=== PATIENT | female | born 1950 | race Caucasian/White ===

== ENCOUNTER 2021-01-31 21:48 | Inpatient (IN) | payer MEDICARE, SELFPAY ==
[~2021-01-31] VITALS: Ht 170.2 cm; Wt 78.0 kg
--- NOTE | 2021-01-31 21:50 | NUR ---
Patient to ER bed 2 to gown for evaluation. Side rails up. Report given to STEVE STEVENS.
[2021-01-31 21:51] VITALS: BP_SYST 187
--- NOTE | 2021-01-31 21:57 | NUR ---
PT ARRIVES VIA ACLS S/P FALL. PT WAS WALKING HER DOG WHEN THE DOG'S LEASH BECAME TANGLED AROUND HER LEFT LEG. THE PT HAS DRAGGED TO THE CONCRETE INJURING HER LEFT LEG. THERE IS AN OBVIOUS DEFORMITY TO THE LEFT LEG
--- NOTE | 2021-01-31 22:00 | NUR ---
DR. CORBIN AT BEDSIDE TO ASSESS.
--- NOTE | 2021-01-31 22:20 | NUR ---
PORTABLE XRAYS DONE AT BEDSIDE.
[2021-01-31] MEDS ORDERED: MORPHINE 4 MG INJ. 4 MG/ML VIAL IVP ONE (22:30)
[2021-01-31] MEDS ORDERED: MORPHINE 2 MG/ML INJ. SYRINGE ONE (22:30)
[2021-01-31] MEDS ORDERED: MORPHINE 4 MG INJ. 4 MG/ML VIAL ONE (22:30)
--- NOTE | 2021-01-31 22:50 | NUR ---
PARHAM INSERTED 16F 150CC OF CLEAR YELLOW URINE DRAINING TO GRAVITY. URINE SPECIMEN OBTAINED AND SENT TO LAB FOR ANALYSIS.
--- NOTE | 2021-01-31 23:00 | NUR ---
PT PAIN LEVEL IMPROVED TO 5/10. PT RESTING QUIETLY IN NO DISTRESS.
[2021-02-01] MEDS ORDERED: MORPHINE 4 MG INJ. 4 MG/ML VIAL IVP ONE
[2021-02-01] MEDS ORDERED: KETOROLAC TROMETHAMINE 30 MG VIAL IVP ONE
[2021-02-01] MEDS ORDERED: MORPHINE 2 MG/ML INJ. SYRINGE ONE ×2 (00:04→00:07)
[2021-02-01 00:08] LABS: BASOPHILS % (AUTO) 0.2 % (0.0-2.0); EOSINOPHILS # (AUTO) 0.1 K/uL (0.0-0.4); EOSINOPHILS % (AUTO) 0.8 % (0.0-4.0); HEMATOCRIT 39.2 % (36-48); HEMOGLOBIN 13.5 g/dL (12.0-16.0); LYMPHOCYTES # (AUTO) 1.3 K/uL (1.0-5.5); LYMPHOCYTES % (AUTO) 12.1 % (20.5-51.5); MEAN CORPUSCULAR HEMOGLOBIN 31 pg (27-31); MEAN CORPUSCULAR HGB CONC 35 % (32-36); MEAN CORPUSCULAR VOLUME 90 fL (79.0-98.0); MONOCYTES # (AUTO) 0.8 K/uL (0.0-1.0); MONOCYTES % (AUTO) 6.9 % (1.7-9.3); NEUTROPHILS # (AUTO) 8.8 K/uL (1.8-7.7); PLATELET COUNT (AUTO) 213 K/uL (130-430); RED BLOOD CELL COUNT(AUTO) 4.34 MIL/uL (4.2-6.2); RED CELL DISTRIBUTION WIDTH 13.5 % (9.0-15.0)
[2021-02-01 00:11] LABS: CALCIUM 9.6 mg/dL (8.4-11.0); CREATININE 0.76 mg/dL (0.55-1.30); POTASSIUM 4.1 mmol/L (3.5-5.1)
[2021-02-01] MEDS ORDERED: ONDANSETRON HCL 4 MG/2 ML VIAL IVP PRN (00:15)
[2021-02-01 00:16] LABS: PROTHROMBIN TIME 10.4 SECS (9.5-12.5)
--- NOTE | 2021-02-01 00:17 | NUR ---
Covid-19 swabs collected and sent to lab.
--- NOTE | 2021-02-01 00:25 | NUR ---
REPORT GIVEN TO RODNEY REAL WHO WILL ASSUME CARE.
[2021-02-01] MEDS ORDERED: LOVA20TA2 PO (00:35)
[2021-02-01] MEDS ORDERED: ASPI-1155 PO (00:35)
[2021-02-01] MEDS ORDERED: SENN-295 PO (00:35)
--- NOTE | 2021-02-01 00:35 | NUR ---
Medication reconciliation completed with information provided by patient. Any prior medication reconciliation on file was reviewed and corrected.
--- NOTE | 2021-02-01 00:54 | NUR ---
Patient will be admitted to care of Dr. Negro. Admitted to MS unit. Will go to room 105B. Belongings list completed. Complete and up to date summary report printed. SBAR report to be given at bedside with opportunity for questions.
[2021-02-01 01:00] VITALS: BP_SYST 152
--- NOTE | 2021-02-01 03:49 | NUR ---
CONSULTATION PAGED/CALLED Reason for Consultation: HIP FX Person Who was Notified: SHERRILL Consulting Physician:JOHN [employer] Specialty: Ordering Physician: ANITHA
--- NOTE | 2021-02-01 08:15 | NUR ---
OPENING NOTES: PATIENT RESTING IN BED. NO SIGNS OF ACUTE DISTRESS NOTED. BED LOCKED, ALARM ON AND IN LOWEST POSITION. FALL AND SAFETY REINFORCED. C/O PAIN LEFT HIP. WILL GIVE PRN MEDICATION. CALL LIGHT WITHIN REACH.
[2021-02-01] MEDS: MORPHINE 4 MG INJ. 4 MG/ML VIAL IVP PRN ×3 (08:21→21:59)
[2021-02-01 08:33] VITALS: BP_SYST 148
--- NOTE | 2021-02-01 11:07 | NUR ---
CONSULT CARDIOLOGY CARDIAC CLEARANCE DR [phone] S/W JUN OFFICE
[2021-02-01 11:10] LABS: BASOPHILS % (AUTO) 0.2 % (0.0-2.0); EOSINOPHILS # (AUTO) 0.2 K/uL (0.0-0.4); EOSINOPHILS % (AUTO) 1.8 % (0.0-4.0); HEMATOCRIT 42.2 % (36-48); HEMOGLOBIN 14.2 g/dL (12.0-16.0); LYMPHOCYTES # (AUTO) 1.8 K/uL (1.0-5.5); LYMPHOCYTES % (AUTO) 18.3 % (20.5-51.5); MEAN CORPUSCULAR HEMOGLOBIN 30 pg (27-31); MEAN CORPUSCULAR HGB CONC 34 % (32-36); MEAN CORPUSCULAR VOLUME 90 fL (79.0-98.0); MONOCYTES # (AUTO) 0.8 K/uL (0.0-1.0); MONOCYTES % (AUTO) 8.1 % (1.7-9.3); NEUTROPHILS # (AUTO) 7.1 K/uL (1.8-7.7); NEUTROPHILS % (AUTO) 71.6 % (40.0-70.0); PLATELET COUNT (AUTO) 216 K/uL (130-430); RED BLOOD CELL COUNT(AUTO) 4.68 MIL/uL (4.2-6.2); RED CELL DISTRIBUTION WIDTH 13.9 % (9.0-15.0); WHITE BLOOD COUNT (AUTO) 9.9 K/uL (4.8-10.8)
[2021-02-01 11:46] LABS: CALCIUM 9.6 mg/dL (8.4-11.0); CREATININE 0.59 mg/dL (0.55-1.30); POTASSIUM 4.4 mmol/L (3.5-5.1)
[2021-02-01 11:52] LABS: ALBUMIN 3.7 g/dL (3.4-4.8); TOTAL BILIRUBIN 0.4 mg/dL (0.0-1.0)
[2021-02-01 11:56] LABS: PROTHROMBIN TIME 10.1 SECS (9.5-12.5)
[2021-02-01] MEDS ORDERED: SUCCINYLCHOLINE CHLORIDE 20 MG/ML(QUELICIN) IVP ONE (12:44)
[2021-02-01] MEDS ORDERED: HYDROmorphone 2 MG/ML VIAL IVP ONE (12:44)
[2021-02-01] MEDS ORDERED: SEVOFLURANE 15 MIN GAS INH ONE (12:44)
[2021-02-01] MEDS ORDERED: BUPIVACAINE LIPOSOME/PF 266 MG/20 ML VIAL INFIL ONE (12:44)
[2021-02-01] MEDS ORDERED: DEXAMETHASONE SOD PHOSPHATE 10 MG/ML VIAL IVP ONE (12:44)
[2021-02-01] MEDS ORDERED: TRANEXAMIC ACID 1,000 MG/10 ML VIAL IV ONE (12:44)
[2021-02-01] MEDS ORDERED: BUPIVACAINE /EPINEPHRINE/PF 0.25% 30 ML VIAL INJ ONE (12:44)
[2021-02-01] MEDS ORDERED: GLYCOPYRROLATE 0.2 MG/ML VIAL IJ ONE (12:44)
[2021-02-01] MEDS ORDERED: METOCLOPRAMIDE HCL 10 MG/2 ML VIAL IVP ONE (12:44)
[2021-02-01] MEDS ORDERED: LR 1,000 ML IV.SOLN IV ONE (12:44)
[2021-02-01 12:58] VITALS: BP_SYST 145
--- NOTE | 2021-02-01 13:14 | NUR ---
RN NOTES: PATIENT C/O PAIN LEFT HIP 01/12. MORPHINE ORDERED PRN FOR PAIN GIVEN. NO SIGNS OF ACUTE DISTRESS NOTED.FALL AND SAFETY MEASURES REINFORCED. CALL LIGHT WITHIN REACH.
[2021-02-01] MEDS: KETOROLAC TROMETHAMINE 15 MG VIAL IVP PRN (17:22)
[2021-02-01 18:32] VITALS: BP_SYST 153
--- NOTE | 2021-02-01 18:55 | NUR ---
CLOSING NOTES: PATIENT EATING DINNER. NO SIGNS OF ACUTE DISTRESS NOTED. FALL AND SAFETY MEASURES RENDERED. CALL LIGHT WITHIN REACH.
--- NOTE | 2021-02-01 19:25 | NUR ---
CHANGE OF SHIFT; endorsed by day shift. admitted for left hip fracture due to a fall. bed alarm on, call light within reach.
[2021-02-01 20:00] VITALS: BP_SYST 134
--- NOTE | 2021-02-01 20:30 | NUR ---
NOTES: pt. awake, alert. wanted to go bowel movement, asked to go and will clean up. IV lock n rt. arm. barrios cath to osd. Vs checked. pt. brush her teeth and dentures. pt. needs attended. call light domi gonzales.
--- NOTE | 2021-02-02 | NUR ---
NOTES: pt. on supine, afraid to mve. instructed on deep breathing exercise.
[2021-02-02 00:15] VITALS: BP_SYST 128
--- NOTE | 2021-02-02 02:08 | NUR ---
NOTES: pt. been sleeping, kept NPO>
--- NOTE | 2021-02-02 04:40 | NUR ---
NOTES; pt. medicated wit IV Morphine for c/o left hip pain. morning care done. CHG bath given. repositioned .
--- NOTE | 2021-02-02 06:24 | NUR ---
CLOSING NOTES; pt. sleeping , preop checklist initiated, consent signed for ORIF left hip today. kept NPO. IV lock intact. folei in place. instructed on deep breathring. for further care an dobservation. on fall risk, bed alarm on. will endorse to incoming shift.
--- NOTE | 2021-02-02 06:55 | NUR ---
Nutrition Update Dax Scale 12 noted. Pt admitted for Hip fracture Diet: NPO BMI: 27 kg/m2 RD to follow per nutrition care standards.
[2021-02-02 07:50] LABS: BILIRUBIN,URINE NEGATIVE (NEGATIVE); BLOOD, URINE 3+ (NEGATIVE); CLARITY/URINE SL CLOUDY (CLEAR); COLOR,URINE YELLOW (YELLOW); GLUCOSE,URINE NEGATIVE (NEGATIVE); KETONES,URINE 1+ (NEGATIVE); LEUKOCYTE ESTERASE ,URINE NEGATIVE (NEGATIVE); NITRITE, URINE NEGATIVE (NEGATIVE); PROTEIN URINE NEGATIVE (NEGATIVE); UROBILINOGEN,URINE 0.2 (0.2-1.0)
[2021-02-02 08:00] VITALS: BP_SYST 149
[2021-02-02] MEDS: MORPHINE 4 MG INJ. 4 MG/ML VIAL IVP PRN (08:25)
--- NOTE | 2021-02-02 09:00 | NUR ---
rec'd report from offgoing nurse initial assessment was done pt is npo for surgery today r/t left hip fx pt overall appearances fair assess left lower extremity csm fair pulses present pt c/o severe pain in left hip denies sob or chest pain pain level 10 out of 10 vss pt appears calm and relaxed was given morphine 4mg ivp with zofran 4 mg ivp for potential feeling nauseated comfort and safety maintained reassess pain level 0 out of 10 her son at her bedside
[2021-02-02 10:04] LABS: RBC,URINE 20-50 /HPF (0-3)
[2021-02-02 10:05] LABS: BACTERIA,URINE None Seen /HPF (None Seen); WBC,URINE 0-3 /HPF (0-3)
[2021-02-02] MEDS ORDERED: ACETAMINOPHEN I.V. 1000 MG 100 ML IV ONE (12:29)
[2021-02-02] MEDS ORDERED: POLYMYXIN 500,000/BACIT.10,000 UNITS in NS IRR 1 L IR ONE (12:29)
--- NOTE | 2021-02-02 12:37 | NUR ---
pt just went down for surgery
[2021-02-02] MEDS ORDERED: fentaNYL CITRATE/PF 100 MCG/2 ML AMP IVP ONE (12:44)
[2021-02-02] MEDS ORDERED: MIDAZOLAM HCL 5 MG/ML VIAL (VERSED) IV ONE (12:44)
[2021-02-02] MEDS ORDERED: BUPIVACAINE LIPOSOME/PF 266 MG/20 ML VIAL INFIL ONE (15:01)
[2021-02-02] MEDS ORDERED: HYDROmorphone 2 MG/ML VIAL IVP PRN ×2 (15:15)
[2021-02-02] MEDS ORDERED: MEPERIDINE HCL/PF 25 MG/ML DISP.SYRIN IVP PRN (15:15)
[2021-02-02] MEDS ORDERED: LR 1,000 ML IV SCH (15:15)
[2021-02-02] MEDS ORDERED: HYDROmorphone 1 MG/ML INJ. CARTRIDGE IVP PRN (15:15)
[2021-02-02 16:35] VITALS: BP_SYST 140
--- NOTE | 2021-02-02 16:35 | NUR ---
rec'd pt from pacu a/a/ox4 ls cta bs pos in all four quad abd soft nondistented has a barrios catheter draining clear yellow urine pt overall appearances fair color good left hip has a white dsd dry and intact she has an abduct. pillow between her legs right leg has a scd on the lle extrem csm fair pulses present denies pain/discomfort teaching reinforced r/t post op care voiced her understanding well son at her side vss is afrebile, comfort and safety maintained
--- NOTE | 2021-02-02 19:30 | NUR ---
CHANGE OF SHIFT; S/P ;eft ORIF today. mo distress. on fall risk. call light at bedside.
[2021-02-02 20:45] VITALS: BP_SYST 126
--- NOTE | 2021-02-02 20:45 | NUR ---
NOTES: pt. awake, talking to her family via cellphone. IVF patent on rt. arm. barrios intact. left hip dressing intact with abduction pillow. no complaints of discomfort at this time. reminded pt. to do deep breathing. VS checked. call light at bedside. on room air.
[2021-02-02] MEDS: DOCUSATE SODIUM 100 MG CAPSULE PO SCH (20:57)
[2021-02-02] MEDS: CEFAZOLIN 1 GM IVPB PREMIX 50 ML IV SCH (21:01)
--- NOTE | 2021-02-02 22:30 | NUR ---
NOTES: pt. transferred room on 102 B. in stable condition via bed.
[2021-02-03 00:30] VITALS: BP_SYST 122
[2021-02-03] MEDS: MORPHINE 4 MG INJ. 4 MG/ML VIAL IVP PRN ×3 (02:12→20:39)
--- NOTE | 2021-02-03 02:39 | NUR ---
NOTES: IV site infiltrated, restarted on left hand guage # [id number], resume IVF. medicated with Morphine IV as ordered for. c/o lef hip pain. instructed on deep breahting.
--- NOTE | 2021-02-03 04:00 | NUR ---
NOTES: pt. sleeping, continue to monitor.
[2021-02-03] MEDS: KETOROLAC TROMETHAMINE 15 MG VIAL IVP PRN (05:12)
--- NOTE | 2021-02-03 05:14 | NUR ---
NOTES: pt. called c/o burning sensation on post op site, applied ice pack and medicated for post op pain.
--- NOTE | 2021-02-03 05:26 | NUR ---
NOTES: partial am /estefany/back care done. repositioned and pulled up in bed. abduction pillow intact. ice pack on left hip, dressing dry and intact. encouraged on deep breathing exercise. call light at bedside.
[2021-02-03] MEDS: CEFAZOLIN 1 GM IVPB PREMIX 50 ML IV SCH (06:26)
--- NOTE | 2021-02-03 06:30 | NUR ---
CLOSING NOTES; pt. sleeping when checked. IVF patent, due IV antibiotic on. barrios intact. for further care and assistance. will endorse to incoming shift.
--- NOTE | 2021-02-03 08:00 | NUR ---
awake and alert. on room air, no respiratory distress noted. abduction pillow in place, dressing dry and intact with icepack over the surgery area. FBC intact with clear yellow urine out put. able to move left foot , no feeling of numbness noted.
[2021-02-03] MEDS: DOCUSATE SODIUM 100 MG CAPSULE PO SCH ×2 (09:00→20:36)
[2021-02-03 09:06] LABS: BASOPHILS % (AUTO) 0.2 % (0.0-2.0); EOSINOPHILS # (AUTO) 0.2 K/uL (0.0-0.4); EOSINOPHILS % (AUTO) 1.4 % (0.0-4.0); HEMATOCRIT 38.9 % (36-48); HEMOGLOBIN 13.1 g/dL (12.0-16.0); LYMPHOCYTES # (AUTO) 1.9 K/uL (1.0-5.5); LYMPHOCYTES % (AUTO) 11.5 % (20.5-51.5); MEAN CORPUSCULAR HEMOGLOBIN 31 pg (27-31); MEAN CORPUSCULAR HGB CONC 34 % (32-36); MEAN CORPUSCULAR VOLUME 91 fL (79.0-98.0); MONOCYTES # (AUTO) 1.6 K/uL (0.0-1.0); MONOCYTES % (AUTO) 9.7 % (1.7-9.3); NEUTROPHILS # (AUTO) 12.7 K/uL (1.8-7.7); NEUTROPHILS % (AUTO) 77.2 % (40.0-70.0); PLATELET COUNT (AUTO) 193 K/uL (130-430); RED BLOOD CELL COUNT(AUTO) 4.28 MIL/uL (4.2-6.2); RED CELL DISTRIBUTION WIDTH 13.5 % (9.0-15.0); WHITE BLOOD COUNT (AUTO) 16.4 K/uL (4.8-10.8)
--- NOTE | 2021-02-03 10:00 | NUR ---
physical therapist is with him at this time.
--- NOTE | 2021-02-03 12:00 | NUR ---
patient said had no appetite, ate only 30%. able to sit on high backrest with no pain noted. afebrile.
--- NOTE | 2021-02-03 13:45 | NUR ---
Dietitian Recommendations * Recommend: continue regular diet, add Ensure Enlive BID, Judson BID. Please see Nutritional Assessment for details. RODNEY CHACON
--- NOTE | 2021-02-03 14:00 | NUR ---
maintained on limbs in proper alignment. made her up and advise to let her upper extremities to move left and right followed by deep breathing and coughing exercise. no complaints of pain so far. back rubbing also offered. kept comfortable.
--- NOTE | 2021-02-03 15:28 | NUR ---
1st post op day left ORIF. dressing dry ,clean and intact. on and off moderate to severe pain noted. pain meds given as ordered. vital signs stable. Had + gas once today. PT zak done this morning. Sebas said she was able to walked 10 steps around the room. back to bed after. patient said she wants more but her legs feels hurting. her plan is to walk more tomorrow. will continue to monitor.
[2021-02-03 15:34] VITALS: BP_SYST 133
--- NOTE | 2021-02-03 16:00 | NUR ---
abduction pillow in place. properly aligned . both lower extremities move. right leg moves well with no pain.
[2021-02-03 16:26] VITALS: BP_SYST 131
--- NOTE | 2021-02-03 18:53 | NUR ---
afebrile the whole shift. reinforce water intake.
--- NOTE | 2021-02-03 19:06 | NUR ---
Farted multiple times at the latest part of my shift as stated by patient. No Bm noted.
[2021-02-03 20:00] VITALS: BP_SYST 134
[2021-02-03] MEDS: ENOXAPARIN SODIUM 40 MG/0.4 ML SYRINGE SUBCUT SCH (20:38)
--- NOTE | 2021-02-03 20:39 | NUR ---
MORPHINE 4MG WAS GIVEN IV PER PT'S REQUEST FOR C/O 7/10 LEFT HIP INCISIONAL PAIN. LT HIP DRESSING IS DRY AND INTACT. NEUROVASCULAR CHECKS TO LLE ARE WNL.
[2021-02-04 00:33] VITALS: BP_SYST 145
--- NOTE | 2021-02-04 06:56 | NUR ---
PT IS RESTING QUIETLY IN BED. ALL PT'S NEEDS WERE ATTENDED TO. WILL ENDORSE TO DAY SHIFT NURSE.
[2021-02-04 08:00] VITALS: BP_SYST 138
[2021-02-04] MEDS: DOCUSATE SODIUM 100 MG CAPSULE PO SCH ×2 (09:00→21:47)
[2021-02-04] MEDS: MORPHINE 4 MG INJ. 4 MG/ML VIAL IVP PRN (10:15)
[2021-02-04 10:16] VITALS: BP_SYST 138
[2021-02-04 11:24] VITALS: BP_SYST 135
--- NOTE | 2021-02-04 11:49 | NUR ---
PT GIULIANA SAID THAT PATIENT HAD AN EPISODE OF NAUSEA WHEN SHE GOT UP FROM BED. BUT SUBSIDED AND ABLE TO WALK 10 TO 15 STEPS WITH NO RESPIRATORY DISTRESS. SPOKE TO PATIENT IF SHE NEED ZOFRAN AND SAID " AM OK ". PLACED ON BED IN COMFORTABLE POSITION, ABDUCTION PILLOW IN PLACED. NO PAIN NOTED.
[2021-02-04 15:31] VITALS: BP_SYST 124
--- NOTE | 2021-02-04 17:32 | NUR ---
Patient/family want patient to go home. She has a FWW, they want a commode and home health and home PT. They will ask MD for requested item/care. Jennie called and asked for order for commode and home health/PT.
--- NOTE | 2021-02-04 18:12 | NUR ---
SON REQUESTED TO DISCHARGE EARLY POSSIBLE. PREFERRED TO STAY HOME WITH FAMILY. CHARGE AND HOUSE VISITOR IS AWARE. CM NOTED.
--- NOTE | 2021-02-04 19:50 | NUR ---
PT'S SON, TOMI CALLED TO INFORM RN THAT PT DOES NOT WANT IV MORPHINE FOR PAIN. HE REQUESTED TO KNOW IF MD ORDERED ANOTHER PAIN MEDICATION BESIDES IV MORPHINE. RN INFORMED HIM THAT SHE WAS IN THE PANTRY GETTING ICE FOR ANOTHER PT WITH HIGH FEVER AND SHE WOULD CALL HIM BACK AFTER CHECKING THE COMPUTER. PT'S SON INSISTED THAT RN CALL HIM BACK RIGHT AWAY.
[2021-02-04 20:00] VITALS: BP_SYST 147
--- NOTE | 2021-02-04 20:30 | NUR ---
PT'S SON, TOMI CALLED BACK TO SPEAK WITH CHARGE NURSE BECAUSE PRIMARY RN WAS YET TO CALL HIM BACK. AT THE TIME OF HIS CALL, PRIMARY RN WAS ON THE PHONE WITH DR. WARNER, OBTAINING SEPSIS PROTOCOL ORDERS FOR ANOTHER PT OF HERS. TOMI' CALL WAS TRANSFERRED TO ADRIEL VENTURA SINCE THERE IS NO CHARGE NURSE IN THE UNIT.
[2021-02-04] MEDS: KETOROLAC TROMETHAMINE 15 MG VIAL IVP PRN (21:47)
--- NOTE | 2021-02-04 21:47 | NUR ---
TORADOL 15MG WAS GIVEN IV FOR C/O LEFT HIP PAIN. FALL AND SAFETY PRECAUTIONS ARE IN PLACE.
[2021-02-04] MEDS: ENOXAPARIN SODIUM 40 MG/0.4 ML SYRINGE SUBCUT SCH (21:50)
[2021-02-05 08:00] VITALS: BP_SYST 134
[2021-02-05] MEDS: DOCUSATE SODIUM 100 MG CAPSULE PO SCH ×2 (08:57→21:41)
--- NOTE | 2021-02-05 08:59 | NUR ---
Scheduled po medication given per order. Patient stable at this time with Evelio thomas at bedside.
[2021-02-05 09:00] VITALS: BP_SYST 134
--- NOTE | 2021-02-05 09:02 | NUR ---
Dr. Collins at bedside at this time.
[2021-02-05] MEDS: KETOROLAC TROMETHAMINE 15 MG VIAL IVP PRN ×2 (09:24→21:49)
--- NOTE | 2021-02-05 09:25 | NUR ---
Pain medication given prior to physical therapy. Patient stable.
--- NOTE | 2021-02-05 11:10 | NUR ---
Patient resting comfortably in bed with Aby thomas PT at bedside. Patient stable at this time.
[2021-02-05 11:26] VITALS: BP_SYST 152
--- NOTE | 2021-02-05 13:05 | NUR ---
Patient resting comfortably in bed; talking on cell phone. Patient stable at this time.
--- NOTE | 2021-02-05 13:41 | NUR ---
DISCHARGE PLANNING Order for dc planning for home health & bedside commode faxed to [facility]. Called & informed Jeromy at [facility], ph [phone], regarding order. States will look for order & work on getting a home health company & DME for pt.
--- NOTE | 2021-02-05 14:20 | NUR ---
Patient stable at this time with no complaint of pain or discomfort.
--- NOTE | 2021-02-05 14:56 | NUR ---
DC PLANNING Received call back from Jeromy at [facility], [facility] has accepted pt, ph [phone]. [employer] is the [employer] company that will be delivering the commode to pt's home today, ph [phone]. [facility] has made a f/u appt with pt's PCP Dr Venegas on Feb 11 at 11am, tele appt. Spoke with pt at bedside & states already discussed with Jeromy at [facility] & agreeable. Does not want to go to SNF, wants to dc home & agreeable with home health & commode.
[2021-02-05 15:33] VITALS: BP_SYST 130
--- NOTE | 2021-02-05 16:25 | NUR ---
Patient resting comfortably in bed with no complaint of pain. Patient stable at this time. Addendum: 02/05/21 at 1644 by Kathryn Rhodes RN [phone]: Family members x2 at bedside.
--- NOTE | 2021-02-05 18:30 | NUR ---
Dr. Castillo at bedside to change dressing on left hip incision. Per doctor, anticipated d/c date is tomorrow (02/06/21). Goff catheter discontinued per order. Emptied 200mls of clear, yellow urine. Patient tolerated well. Patient stable throughout shift.
[2021-02-05 20:00] VITALS: BP_SYST 121
--- NOTE | 2021-02-05 20:00 | NUR ---
INITIAL NOTES: PT IS WAKE ,NOT IN ANY ACUTE DISTRESS ; VITALS ARE STABLE ASSESSMENT DONE ; DRESSING NOTICED TO LEFT HIP , NO BLEEDING NOTICED ; ALL NEEDS ATTENDED ;NO COMPLAINTS OF ANY PAIN AT THIS TIME ; BED IN LOW AND LOCK POSITION; CALL SHEPARD IN REACH ; PT REFUSED BED ALARM ; PT HAS ABDUCTOR PILLOW ON .
[2021-02-05] MEDS: ENOXAPARIN SODIUM 40 MG/0.4 ML SYRINGE SUBCUT SCH (21:41)
[2021-02-06 01:23] VITALS: BP_SYST 137
--- NOTE | 2021-02-06 01:45 | NUR ---
VOIDED: PT CALLED ,PROVIDED BEDPAN , PT STATED SHE COULDNT ABLE TO VOID, ASSISTED PT TO [facility] WITH ANOTHER CLINICAL SCIENCE LIAISON ASSIST . PT VOIDED WELL ; ASSISTED PT BACK TO BED , PLACED ABDUCTION PILLOW IN BETWEEN LEGS . PT IS COMFORTABLE . Addendum: 02/06/21 at 0745 by Odilon Preciado RN PT STATED SHE IS CONSTIPATED FROM , COLACE WAS GIVEN PER ORDER , ALOS PROVIDED PRUNE JUICE
--- NOTE | 2021-02-06 07:30 | NUR ---
CLOSING NOTES: PT IS AWAKE , NOT IN ANY ACUTE DISTRESS; ASSISTED PT TO BSC , PT VOIDED WELL ; ALL NEEDS ATTENDED .ASSISTED PT BACK TO BED ; DAY SHIFT RN AT BEDSIDE , REPORT GIVEN .
[2021-02-06 07:42] LABS: BASOPHILS # (AUTO) 0.1 K/uL (0.0-0.2); BASOPHILS % (AUTO) 0.7 % (0.0-2.0); EOSINOPHILS # (AUTO) 0.4 K/uL (0.0-0.4); EOSINOPHILS % (AUTO) 3.8 % (0.0-4.0); HEMATOCRIT 32.6 % (36-48); LYMPHOCYTES # (AUTO) 1.5 K/uL (1.0-5.5); MEAN CORPUSCULAR HEMOGLOBIN 30 pg (27-31); MEAN CORPUSCULAR HGB CONC 34 % (32-36); MEAN CORPUSCULAR VOLUME 90 fL (79.0-98.0); MONOCYTES # (AUTO) 1.2 K/uL (0.0-1.0); MONOCYTES % (AUTO) 12.2 % (1.7-9.3); NEUTROPHILS # (AUTO) 6.6 K/uL (1.8-7.7); NEUTROPHILS % (AUTO) 68.3 % (40.0-70.0); PLATELET COUNT (AUTO) 232 K/uL (130-430); RED BLOOD CELL COUNT(AUTO) 3.64 MIL/uL (4.2-6.2); RED CELL DISTRIBUTION WIDTH 13.1 % (9.0-15.0); WHITE BLOOD COUNT (AUTO) 9.7 K/uL (4.8-10.8)
--- NOTE | 2021-02-06 08:00 | NUR ---
patient is awake with no complaints of pain, not in distress. instructed to inhale /exhale or use her spirometer as often as she can. noted 90% saturation. able to make it to 98% after. drressing dry and intact.
[2021-02-06] MEDS: DOCUSATE SODIUM 100 MG CAPSULE PO SCH (09:00)
--- NOTE | 2021-02-06 09:40 | NUR ---
Adam physical therapist said patient is able to walk in small steps for around [address]. tolarated well with no severe pain noted. can take tylenol in case she need it. but" said am fine"
[2021-02-06] MEDS ORDERED: ACETAMINOPHEN 325 MG TABLET PO PRN (11:15)
--- NOTE | 2021-02-06 11:35 | NUR ---
C/M av called from home health is aware patient to discharge today as ordered by Dr Posadas. patient called son to pick her up at 5 pm.
[2021-02-06 11:46] VITALS: BP_SYST 130
[2021-02-06 16:27] VITALS: BP_SYST 115
== END 2021-02-06 17:00 | disposition home health service (06) | DRG 522 ==
LOC: SED 21:48 → SMU 02-01 00:11 → SED 02-01 00:55 → SMU 02-01 02:18
PROVIDERS: ADMIT Internal Medicine Hospice and Palliative Medicine; ATTEND Internal Medicine Hospice and Palliative Medicine
PROC: 0SRS0JA Replacement of Left Hip Joint, Femoral Surface with Synthetic Substitute, Uncemented, Open Approach (ICD-10-PCS; principal; 2021-02-02 10:15)
DX: S72.012A Unspecified intracapsular fracture of left femur, initial encounter for closed fracture (principal); E78.5 Hyperlipidemia, unspecified; M81.0 Age-related osteoporosis without current pathological fracture; R00.1 Bradycardia, unspecified; W18.39XA Other fall on same level, initial encounter; Z96.641 Presence of right artificial hip joint; S72.142A Displaced intertrochanteric fracture of left femur, initial encounter for closed fracture; M16.12 Unilateral primary osteoarthritis, left hip; Z20.822 Contact with and (suspected) exposure to COVID-19; Z79.82 Long term (current) use of aspirin; Z79.899 Other long term (current) drug therapy; Y93.89 Activity, other specified; Y92.89 Other specified places as the place of occurrence of the external cause; Y99.8 Other external cause status
CPT/HCPCS: 36415; 71045; 72170-TC; 73502; 80048; 80053; 81000; 85025; 85610-TC; 85730-TC; 86886; 86900; 86901; 88305; 88311; 93005; 94010; 96374; 96375; 96376; 97116-GP; 97163-GP; 97530-GP; 99285; C1713; C1776; C9290; J0131; J0330; J0690; J1100; J1170; J1650; J1885; J2250; J2270; J2405; J2765; J3010; J3490; J7120